=== PATIENT | female | born 1965 | race Caucasian/White ===

== ENCOUNTER 2020-12-10 16:25 | Inpatient (IN) | payer OTHER, BC ==
[~2020-12-10] VITALS: Ht 172.7 cm; Wt 104.0 kg
--- NOTE | ~2020-12-10 | EMS ---
[facility] [address] [place] [address] EMS Patient Care Report Name: FELIPE MUÑOZ Room #: REG DEMETRIUS Bernardo#: [id number] Admission: 12/10/20 Attend Phys: Discharge: Date of : 63 Report #: [id number] THIS REPORT FOR: //name// Report Transmitted: 12/10/2020 19:00 EMS Care Summary [facility] MED-ACT Incident [id number] @ 12/10/2020 15:40 Incident Location [address] [place] [address] Patient FELIPE MUÑOZ Female, 55 Years 1965 Patient Address [address] [place] [address] Patient History Other,Diabetes,Hypertension (HTN),Kidney/Renal Failure,Hyperlipidemia,Anxiety,Dialysis,Anorexia Nervosa, Patient Allergies Reglan,Zocor,Lipitor, Patient Medications Metoprolol, Acetaminophen, Plavix, Protonix, Aspirin, Hydralazine, Humalog, Gabapentin, Levemir, Loratadine, Xanax, Ondansetron, Amlodipine, Chief Complaint "Her hemoglobin is 5.9" Disposition Transported No Lights/[place] Dispatch Reason Breathing Problem Transported To [facility] Narrative "Her hemoglobin is 5.9" [facility] [address] [place] [address] EMS Patient Care Report Name: FELIPE MUÑOZ Room #: REG DEMETRIUS Bernardo#: [id number] Admission: 12/10/20 Attend Phys: Discharge: Date of : 63 Report #: [id number] responded with [place] [facility] on a PT experiencing difficulty breathing at a dialysis center. Upon our arrival the PT was found sitting at a dialysis machine (unattached) alert and oriented, speaking in full sentences without difficulty complaining of a headache and nausea that began during dialysis. the PT is wearing a surgical mask. The staff report that the PT had her blood drawn last night that revealed a hemoglobin of 5.9 (normal is 10.0) and that she was transported to [facility] dialysis to be dialyzed today. The PT reports that she is normally dialyzed 3 times per week (Tuesday, Tuesday and Tuesday) and that today they took off about 2 liters of fluid from her. The PT reports that near completion of her dialysis she developed a strong front lobe headache and nausea. The PT requests transport to [facility] for further evaluation and treatment. The PT is able to stand with assistance to transfer to the cot, is draped with a sheet and secured using the cot straps provided. The PT is then transferred to the ambulance via the cot without incident. Treatment - Assessment, Vital Signs, 3 Lead EKG, 12 Lead EKG, Zofran ODT 4 mg, Blood Glucose Analysis, Temperature Check (98.1) The PT was transported to [facility] per PT request. The PT rested comfortably on our cot throughout the duration of our care. The PT was delivered to exam room 4 and a verbal report was given to the attending RN without incident. [id number] went back in service as nothing further was required. Initial Vitals @15:59P: 74,R: 18,Pain: 0/10,GCS: 15,SpO2: 93,RI Suspected: false @16:01P: 76,R: 18,BP: 127/74,Pain: 0/10,GCS: 15,SpO2: 93,Revised Trauma: 12,RI Suspected: false @16:15P: 74,R: 18,BP: 146/66,Pain: 0/10,GCS: 15,SpO2: 92,Revised Trauma: 12,RI Suspected: false @16:15R: 18,Pain: 0/10,GCS: 15,Temp: 98.1F,Glucose: 76,SpO2: 98,RI Suspected: false Assessments @15:48MENTAL:Person Oriented,Time Oriented,Place Oriented,Event Oriented,SKIN:HEENT:Head/Face: No Abnormalities,Eyes: No Abnormalities,Neck/Airway: No Abnormalities,LUNG SOUNDS:General: Nausea,ABDOMEN:General: Nausea,PELVIS//GI:No Abnormalities,EXTREMITIES:Left Arm: No Abnormalities,Right Arm: No Abnormalities,Left Leg: No Abnormalities,Right Leg: No Abnormalities,PULSE:NEURO: Impression Headache Procedures @16:07Ondansetron - 4 Milligrams (mg) - OralResponse: Unchanged@15:5912-Lead ECGResponse: [place] [address] EMS Patient Care Report Name: MUÑOZFELIPE Room #: REG DEMETRIUS Bernardo#: [id number] Admission: 12/10/20 Attend Phys: Discharge: Date of : 63 Report #: [id number] Timeline 15:39,Call Received 15:39,Psap Call 15:40,Dispatched 15:41,En Route 15:45,On Scene 15:47,At Patient 15:59,12-Lead ECG,Response: UnchangedSucceeded, 15:59,BP: / M,PULSE: 74,RR: 18 R,SPO2: 93 Ox,ETCO2: ,BG: ,PAIN: 0,GCS: 15, 16:01,BP: 127/74 M,PULSE: 76,RR: 18 R,SPO2: 93 Ox,ETCO2: ,BG: ,PAIN: 0,GCS: 15, 16:01,Depart Scene 16:07,Ondansetron - 4 Milligrams (mg) - Oral,Response: Unchanged 16:15,BP: / M,PULSE: ,RR: 18 R,SPO2: 98 Ox,ETCO2: ,B,PAIN: 0,GCS: 15, 16:15,BP: 146/66 M,PULSE: 74,RR: 18 R,SPO2: 92 Ox,ETCO2: ,BG: ,PAIN: 0,GCS: 15, 16:17,At Destination 16:48,Call Closed Disclaimer v1.1 Copyright 2020 [employer] This EMS Care Summary contains data elements from the applicable legal record (which may be displayed differently). It is designed to provide pertinent information for the following purposes: continuity of care, clinical quality, and state data reporting. The complete legal record is available to ED staff and administrators of the receiving hospital in [employer]'s Patient Tracker. All data is provided "as is."
[2020-12-10 16:30] VITALS: BP 140/65
[2020-12-10 17:13] LABS: ABSOLUTE NEUTROPHILS 3.7 thou/uL (1.4-8.2); BASOPHILS 0.9 % (0.0-2.0); EOSINOPHILS 3.8 % (0.0-3.0); HEMATOCRIT 20.5 % (37.0-47.0); HEMOGLOBIN 6.8 gm/dL (12.0-15.0); LYMPHOCYTES 15.4 % (24.0-44.0); MCH 31.8 pg (26.0-34.0); MCHC 33.2 g/dL (28.0-37.0); MCV 95.7 fL (80.0-100.0); MONOCYTES 7.8 % (1.0-8.0); PLATELET COUNT 251 thou/uL (150-400); POLYS 72.1 % (36.0-66.0); RBC 2.14 mil/uL (4.20-5.00); RDW 16.1 % (10.5-14.5); WBC 5.4 thou/uL (4.0-11.0)
[2020-12-10 17:17] LABS: CREATININE 3.3 mg/dL (0.6-1.0); POTASSIUM 4.7 mmol/L (3.5-5.1)
[2020-12-10 17:24] LABS: ALBUMIN 3.5 g/dL (3.4-5.0); TOTAL BILIRUBIN 0.4 mg/dL (0.2-1.0); TOTAL PROTEIN 6.7 g/dL (6.4-8.2)
[2020-12-10] MEDS ORDERED: TYLENOL325 MG PO (17:46)
[2020-12-10] MEDS ORDERED: VITAMINC500 PO (17:47)
[2020-12-10] MEDS ORDERED: NORVASC5 MG PO (17:47)
[2020-12-10] MEDS ORDERED: NITROSTAT0.3 MG SUBLING (17:47)
[2020-12-10] MEDS ORDERED: PEPCID40 MG PO (17:48)
[2020-12-10] MEDS ORDERED: SLEEP AID50 MG PO (17:48)
[2020-12-10] MEDS ORDERED: NEURONTIN300 MG PO (17:48)
[2020-12-10] MEDS ORDERED: PLAVIX 75 MG TA75 MG PO (17:48)
[2020-12-10] MEDS ORDERED: HUMALOG100 UNIT/1 SUBQ (17:49)
[2020-12-10] MEDS ORDERED: POWDERLAX238 GM PO (17:49)
[2020-12-10] MEDS ORDERED: HYDRALAZINE 2525 M1 PO (17:50)
[2020-12-10] MEDS ORDERED: LEVEMIR100 UNIT/1 SUBQ (17:50)
[2020-12-10] MEDS ORDERED: RENAL-VITE TAB0.8 MG PO (17:50)
[2020-12-10] MEDS ORDERED: PHENERGAN 25 MG25 MG PO (17:50)
[2020-12-10] MEDS ORDERED: SENNA PLUS TAB1 EACH PO (17:51)
[2020-12-10] MEDS ORDERED: LORATIDINE 10 M10 M1 PO (17:51)
[2020-12-10] MEDS ORDERED: MIRALAX119 GM PO (17:52)
[2020-12-10] MEDS ORDERED: XANAX 0.5 MG0.5 M1 PO (17:52)
[2020-12-10] MEDS ORDERED: VELPHORO500 MG PO (17:52)
[2020-12-10] MEDS ORDERED: ZOFRAN4 MG PO (17:52)
[2020-12-10] MEDS ORDERED: TOPROL XL25 MG PO (17:52)
[2020-12-10 18:06] LABS: ANISOCYTOSIS 1+; HYPOCHROMASIA 1+
[2020-12-10 20:06] LABS: APTT 29.6 Seconds (24.5-32.8); PROTIME 10.9 Seconds (10.5-12.1)
--- NOTE | 2020-12-10 20:34 | NUR ---
UNABLE TO OBTAIN 20G IV FOR BLOOD ADMINISTRATION. 22G IV WORKS WELL, FLUSHES WITHOUT DIFFICULTY
[2020-12-10 21:05] VITALS: BP 157/71
[2020-12-10 22:20] VITALS: BP 134/84
[2020-12-10 22:35] VITALS: BP 141/70; BP 171/85
[2020-12-10 22:50] VITALS: BP 141/70
[2020-12-10] MEDS ORDERED: SINGULAIR 10 MG10 M1 PO (23:03)
[2020-12-11 01:55] VITALS: BP 171/85
--- NOTE | 2020-12-11 03:03 | NUR ---
Arrived from ER around 2139.Adm hx & assessment completed , med rec verified with pt. Completed 1 unit of PRBC and tolerated well without reaction. O2 at 2L/NC at HS only per pt. until she gets her CPAP. Pt. is completely blind. Left FA dialysis fistula with thrill and bruit. GI and renal consult called to answering service. Bed alarm on for safety. SCD's in place.
[2020-12-11 04:35] VITALS: BP 171/81
[2020-12-11 04:45] VITALS: BP 159/88
[2020-12-11 05:46] LABS: HEMATOCRIT 22.2 % (37.0-47.0); HEMOGLOBIN 7.6 gm/dL (12.0-15.0)
--- NOTE | 2020-12-11 06:12 | NUR ---
AMF MECHANIC notified of elevated BP and hgb result this am. Pt. c/o nausea, zofran given with good relief. Hydralazine also given for elevated BP.
[2020-12-11 07:21] VITALS: BP 142/67
--- NOTE | 2020-12-11 14:30 | NUR ---
calos spk with pt who inidicated she was admitted from [facility]. pt plans to rtrn to [facility] at d/c. pt is dialysis pt at [facility] on in [place]. seat time is m-w-f. pt has been "totally blind," since age of 39 y/o. pt friends are her live in caregivers, delia and jayshree. pt has walker, w/c and quad cane. pt had inidicated [facility] working with her to help get her set up with a cpap/bipap.
--- NOTE | 2020-12-11 18:28 | NUR ---
NO BM OR EMESIS WITH BLOOD NOTED THIS SHIFT. NO C/O NAUSEA OR ABD PAIN. NO PLANS FOR GI INTERVENTION ATT PER PHYSICIAN.
[2020-12-11 19:26] VITALS: BP 127/52
[2020-12-12 03:49] VITALS: BP 137/74
--- NOTE | 2020-12-12 04:35 | NUR ---
Pt. requested to take a shower after shift change. Able to shower with set up. Slept some then woke up with headache. Tylenol given per order with some relief. No active bleeding. No c/o nausea or vomiting. O2 at 2L/NC at HS until she gets her CPAP. Making some progress towards care plan goals.
[2020-12-12 05:25] LABS: HEMATOCRIT 21.6 % (37.0-47.0); HEMOGLOBIN 7.3 gm/dL (12.0-15.0); MCH 31.7 pg (26.0-34.0); MCHC 33.8 g/dL (28.0-37.0); MCV 93.7 fL (80.0-100.0); RBC 2.3 mil/uL (4.20-5.00); RDW 16.2 % (10.5-14.5); WBC 4.6 thou/uL (4.0-11.0)
[2020-12-12 06:07] LABS: CALCIUM 8.4 mg/dL (8.5-10.1); MAGNESIUM 1.9 mg/dL (1.8-2.4); POTASSIUM 5.8 mmol/L (3.5-5.1)
[2020-12-12 06:17] LABS: % SATURATION 23 % (20-39); CREATININE 7.2 mg/dL (0.6-1.0); IRON 43 ug/dL (50-170); TIBC 190 ug/dL (250-450)
[2020-12-12 07:32] VITALS: BP 163/77
--- NOTE | 2020-12-12 15:06 | NUR ---
LAYTON reviewed chart and spoke with nursing and attending physician. Pt is progressing towards goals for discharge. GI and cardiology consulted. Pt may be ready for discharge back to [facility] over the weekend. LAYTON met with pt at bedside to provide update. Pt is aware and agreeable with plan to discharge back to [facility]. Pt is hoping to be able to start having dialysis at [facility]. Pt is currently going to her regular outpatient dialysis. LAYTON faxed updated info to [facility] for review. LAYTON spoke with [place] in admissions. Pt's hemoglobin must be above 7.2 in order to dialysis at the clinic onsite at [facility]. Pt's hemoglobin has been below 7.2. Pt's hemoglobin today was 7.3. [facility] is able to accept pt back over the weekend if she is ready for discharge. Staff to call [place] at [facility] to coordinate. Finalized d/c summary and orders will need to be faxed. Nursing will need to call report. Chart copy will be needed. LAYTON is following and is available to assist as needed with discharge planning. [facility]-- [place] (Admissions): [phone]
[2020-12-12 15:25] VITALS: BP 115/53
[2020-12-12 19:58] VITALS: BP 134/58
[2020-12-13 03:20] VITALS: BP 154/74
--- NOTE | 2020-12-13 06:11 | NUR ---
PT MAKING SLOW PROGRESS TOWARDS GOALS. PT POSSIBLY NAUSEA ONCE LAST NIGHT. PT REPORTED THAT SHE BELIEVED SHE COUGHED SO HARD THAT SHE MAY HAVE SLIGHTLY VOMITED WELL. ZOFRAN X1 GIVEN. NOTED OCCASIONAL HARSH COUGH BUT NO FURTHER REPORTS OF N/V.
[2020-12-13 07:09] LABS: HEMATOCRIT 22.7 % (37.0-47.0); HEMOGLOBIN 7.5 gm/dL (12.0-15.0); MCH 31.3 pg (26.0-34.0); MCHC 32.9 g/dL (28.0-37.0); MCV 95.2 fL (80.0-100.0); RBC 2.39 mil/uL (4.20-5.00); RDW 17.4 % (10.5-14.5); WBC 4.5 thou/uL (4.0-11.0)
[2020-12-13 07:21] LABS: CALCIUM 9.1 mg/dL (8.5-10.1); MAGNESIUM 1.8 mg/dL (1.8-2.4); POTASSIUM 5.5 mmol/L (3.5-5.1)
[2020-12-13 07:22] LABS: CREATININE 6.2 mg/dL (0.6-1.0)
[2020-12-13 08:00] VITALS: BP 176/83
[2020-12-13] MEDS ORDERED: PROTONIX40 M2 PO (11:29)
--- NOTE | 2020-12-13 13:23 | NUR ---
LAYTON informed that pt is medically stable to D/C and return to [facility]. LAYTON faxed to [facility] fax number [phone], H&P, progress notes, labs, dialysis flow chart, pt/ot notes, D/C summary, and final med list. [place] [phone] at [facility] confirmed receipt and set transport for 1600. LAYTON provided the NOD w/ the number for report at [facility] [phone] and instructed to ask for "Post acute rehab". No further needs identified
--- NOTE | 2020-12-13 15:38 | NUR ---
ASSESSMENT CHARTED. PT ALERT AND ORIENTED. RECEIVED PRN PAIN MED FOR [facility] WITH PARTIAL RELIEF. SEEN BY DR. CAMEJO. ORDERS GIVEN TO DISCHARGE PT TO [facility]. REPORT CALLED IN TO [facility]. PT LEFT THE FACILITY WITH ALL HER BELONGINGS.
== END 2020-12-13 15:59 | DRG 377 ==
LOC: ER 16:25 → EROBS 20:36 → 3W 20:36
PROVIDERS: Emergency Medicine; Hospitalist; Nurse Practitioner Family; ADMIT Internal Medicine; ATTEND Internal Medicine
PROC: 30233N1 Transfusion of Nonautologous Red Blood Cells into Peripheral Vein, Percutaneous Approach (ICD-10-PCS; principal; 2020-12-10)
PROC: 5A1D70Z Performance of Urinary Filtration, Intermittent, Less than 6 Hours Per Day (ICD-10-PCS; 2020-12-12)
DX: K92.1 Melena (principal); J96.01 Acute respiratory failure with hypoxia; N18.6 End stage renal disease; D62 Acute posthemorrhagic anemia; I13.2 Hypertensive heart and chronic kidney disease with heart failure and with stage 5 chronic kidney disease, or end stage renal disease; E78.5 Hyperlipidemia, unspecified; G47.33 Obstructive sleep apnea (adult) (pediatric); E10.42 Type 1 diabetes mellitus with diabetic polyneuropathy; H54.8 Legal blindness, as defined in USA; K31.7 Polyp of stomach and duodenum; E87.5 Hyperkalemia; I25.10 Atherosclerotic heart disease of native coronary artery without angina pectoris; I50.9 Heart failure, unspecified; Z90.49 Acquired absence of other specified parts of digestive tract; Z99.2 Dependence on renal dialysis; Z79.01 Long term (current) use of anticoagulants; Z79.899 Other long term (current) drug therapy; Z79.4 Long term (current) use of insulin; Z88.8 Allergy status to other drugs, medicaments and biological substances
CPT/HCPCS: 10879; 32100